=== PATIENT | female | born 1970 | race American Indian/Alaskan Native ===

== ENCOUNTER 2021-09-22 16:47 | Emergency (ER) | payer SELFPAY ==
[2021-09-22] MEDS ORDERED: LORazepam 2 MG/ML VIAL IM PRN (18:24)
[2021-09-22] MEDS ORDERED: charcoal activated SOLUTION 25 GM/120 ML PO ONE (18:46)
[2021-09-22] MEDS ORDERED: ONDANSETRON 4 MG ODT TAB PO ONE (18:46)
--- NOTE | 2021-09-22 18:46 | Emergency Department Report ---
ED General Adult HPI - General Chief complaint: Psych Stated complaint: SUICIDAL PUI?: No Time Seen by Provider: 09/22/21 18:01 Source: patient, EMS ( EMS documentation not available at time of chart dictation ), RN notes reviewed Mode of arrival: Ambulatory Limitations: No Limitations - History of Present Illness Initial comments: The patient is a 51-year-old female. She is not known to myself previously. She arrives with EMS with an EMS stated complaint to triage/charge nurse of suicide attempt. Patient's family member reportedly called 911. The patient states that she is depressed and suicidal. She states that she overdosed on "some pills", and "Visine eyedrops." She tells me that she is not having physical pain. She tells me that she wants to be with a family member. The patient does not know the time of ingestion. The patient states there is no one who can corroborate time of ingestion. She does not know specifically what she took. A pill bag accompanies the patient. Medications include aripiprazole, 5 mg, clonazepam, 0.5 mg, losartan HCTZ [id number], atorvastatin 40 mg, and escitalopram The patient denies physical pain. The patient denies Covid symptoms. The patient states that she is still depressed and suicidal. The patient is not accompanied by friends or family at this time for collateral information or additional information. -: unknown Severity scale (0 -10): 0 - Related Data Previous Rx's Medication Instructions Recorded Last Taken Type Sertraline [Zoloft] 25 mg PO QDAY #30 tab 09/24/21 Unknown Rx hydrOXYzine PAMOATE [Vistaril] 25 mg PO BID PRN #60 capsule 09/24/21 Unknown Rx traZODone [Desyrel] 50 mg PO QHS #30 tab 09/24/21 Unknown Rx Allergies Allergy/AdvReac Type Severity Reaction Status Date / Time Penicillins AdvReac Itching Verified 09/22/21 17:18 ED Review of Systems ROS: Stated complaint: SUICIDAL Other details as noted in HPI Comment: All other systems reviewed and negative Psychiatric: depression, suicidal thoughts ED Past Medical Hx - Past Medical History Hx Hypertension: Yes Additional medical history: depression. sickle cell trait - Social History Smoking Status: Never Smoker Substance Use Type: Alcohol - Medications Home Medications: Home Medications Medication Instructions Recorded Confirmed Last Taken Type Sertraline [Zoloft] 25 mg PO QDAY #30 tab 09/24/21 Unknown Rx hydrOXYzine PAMOATE [Vistaril] 25 mg PO BID PRN #60 capsule 09/24/21 Unknown Rx traZODone [Desyrel] 50 mg PO QHS #30 tab 09/24/21 Unknown Rx ED Physical Exam - General Limitations: No Limitations General appearance: alert, in no apparent distress - Head Head exam: Present: atraumatic, normocephalic - Eye Eye exam: Present: normal appearance, EOMI. Absent: nystagmus - ENT ENT exam: Present: normal exam, normal orophraynx, mucous membranes moist, normal external ear exam - Neck Neck exam: Present: normal inspection, full ROM. Absent: tenderness, meningismus - Respiratory Respiratory exam: Present: normal lung sounds bilaterally. Absent: respiratory distress, wheezes, rales, rhonchi, stridor, decreased breath sounds - Cardiovascular Cardiovascular Exam: Present: regular rate, normal rhythm, normal heart sounds. Absent: bradycardia, tachycardia, irregular rhythm, systolic murmur, diastolic murmur, rubs, gallop - GI/Abdominal GI/Abdominal exam: Present: soft. Absent: distended, tenderness, guarding, rebound, rigid, pulsatile mass - Extremities Exam Extremities exam: Present: normal inspection, full ROM, other (2+ pulses noted in the bilateral upper and lower extremities. There is no palpable cord. negative Homans sign. Muscular compartments are soft. The pelvis is stable.). Absent: pedal edema, calf tenderness - Back Exam Back exam: Present: normal inspection, full ROM. Absent: tenderness, CVA tenderness (R), CVA tenderness (L), paraspinal tenderness, vertebral tenderness - Neurological Exam Neurological exam: Present: alert, oriented X3, other (No facial droop. Tongue midline. Extraocular movements intact bilaterally. Facial sensation intact to light touch in V1, V2, V3 distribution bilaterally. 5 and a 5 strength in 4 extremities. Sensation intact to light touch in 4 extremities.). Absent: motor sensory deficit - Psychiatric Psychiatric exam: Present: flat affect, suicidal ideation - Skin Skin exam: Present: warm, dry, intact, normal color. Absent: rash ED Course Vital Signs 09/22/21 09/22/21 09/22/21 14:07 17:17 17:21 Temperature Pulse Rate Respiratory 18 Rate Blood Pressure 238/182 238/182 Blood Pressure [Right] O2 Sat by Pulse 97 Oximetry 09/22/21 09/22/21 09/22/21 17:31 17:45 18:01 Temperature Pulse Rate Respiratory Rate Blood Pressure 238/182 123/78 118/73 Blood Pressure [Right] O2 Sat by Pulse 97 99 99 Oximetry 09/22/21 09/22/21 09/22/21 18:15 18:31 18:56 Temperature 98.0 F Pulse Rate 61 Respiratory 16 Rate Blood Pressure 109/67 111/70 Blood Pressure 103/70 [Right] O2 Sat by Pulse 97 99 98 Oximetry 09/22/21 09/23/21 09/23/21 20:00 01:01 03:39 Temperature 98.0 F 98.2 F 98.4 F Pulse Rate 79 69 69 Respiratory 16 16 16 Rate Blood Pressure Blood Pressure 106/61 97/59 106/59 [Right] O2 Sat by Pulse 100 99 97 Oximetry 09/23/21 09/23/21 09/23/21 05:53 07:03 07:30 Temperature Pulse Rate 67 88 Respiratory 16 18 15 Rate Blood Pressure Blood Pressure 94/51 88/59 [Right] O2 Sat by Pulse 98 97 99 Oximetry 09/23/21 09/24/21 09/24/21 20:08 03:01 09:05 Temperature 98.4 F 98.6 F 98.6 F Pulse Rate 76 78 93 H Respiratory 18 18 16 Rate Blood Pressure Blood Pressure 112/72 110/70 130/87 [Right] O2 Sat by Pulse 98 98 100 Oximetry - Reevaluation(s) Reevaluation #1: 09/22/21 18:46 Differential diagnosis, including the not limited to: Overdose, suicidality, medical clearance for psychiatric placement, depression with psychotic features Assessment and plan: 51-year-old female, who is awake, alert, oriented, with a GCS of 15, nonfocal motor exam, with complaint of suicidality, depression and overdose. We do not know specifically what the patient took, as the patient rothman s not know specifically what she took. The patient does not know an exact time of ingestion. The patient is awake and protecting airway and moving [address] patient on gis database administrator. Initiate 1013. Obtain appropriate laboratory studies and EKG. Discussed with Poison Control Center after initial diagnostics have resulted. Given multiple medications that the patient is currently prescribed, possibility of polysubstance/polypharmacy ingestion, unknown exact ingestion, unknown ingestion time, lack of ability to corroborate ingestion, I anticipate this patient will likely require prolonged observation for observation, given that she takes aripiprazole, and escitalopram and we do not know if she took these medications or not 09/22/21 18:46 09/22/21 20:15 Laboratory studies are reviewed and appreciated. Contacted the [facility], and discussed the case with their advisor, Domingo Discussed the patient's history, physical, current laboratory studies and EKG findings. Recommends observation in the emergency room for 8 to 12 hours. Recommends 3 EKGs and supportive care. Recommend set of QRS duration greater than or equal to 110 ms, give 2 A of sod ium bicarbonate, and repeat EKG. If the repeat EKG after administration of sodium bicarbonate shows a narrow QRS, he recommends bicarb drip at our discretion. If there is no change, he recommends that this is likely the patient's baseline QRS. He also recommends optimization of potassium. We have ordered this. Repeat acetaminophen level is pending. Patient will therefore be observed in the emergency room for approximately 8 to 12 hours, with the aforementioned recommendations. 09/22/21 20:43 Care will be transferred to the oncoming ER physician, to follow-up on EKG #2 and 3, Tylenol level, UA, UDS, and to complete observation pending 5:15 in the morning. Should the patient not decompensated by that time, we would consider this patient medically suitable for psychiatric disposition and placement. ED Medical Decision Making - Lab Data Result diagrams: 09/22/21 18:29 09/22/21 18:29 Vital Signs 09/22/21 09/22/21 09/22/21 14:07 17:17 17:21 Respiratory 18 Rate Blood Pressure 238/182 238/182 O2 Sat by Pulse 97 Oximetry 09/22/21 09/22/21 09/22/21 17:31 17:45 18:01 Respiratory Rate Blood Pressure 238/182 123/78 118/73 O2 Sat by Pulse 97 99 99 Oximetry 09/22/21 09/22/21 18:15 18:31 Respiratory Rate Blood Pressure 109/67 111/70 O2 Sat by Pulse 97 99 Oximetry Lab Results 09/22/21 09/22/21 09/22/21 Range/Units 18:29 18:29 18:29 WBC 7.1 (4.5-11.0) K/mm3 RBC 4.94 (3.65-5.03) M/mm3 Hgb 13.8 (10.1-14.3) gm/dl Hct 42.1 (30.3-42.9) % MCV 85 (79-97) fl MCH 28 (28-32) pg MCHC 33 (30-34) % RDW 14.0 (13.2-15.2) % Plt Count 266 (140-440) K/mm3 Lymph % (Auto) 31.9 (13.4-35.0) % [place] % (Auto) 7.5 H (0.0-7.3) % Eos % (Auto) 0.7 (0.0-4.3) % Baso % (Auto) 0.6 (0.0-1.8) % Lymph # (Auto) 2.3 (1.2-5.4) K/mm3 [place] # (Auto) 0.5 (0.0-0.8) K/mm3 Eos # (Auto) 0.1 (0.0-0.4) K/mm3 Baso # (Auto) 0.0 (0.0-0.1) K/mm3 Seg Neutrophils % 59.3 (40.0-70.0) % Seg Neutrophils # 4.2 (1.8-7.7) K/mm3 PT (12.2-14.9) Sec. INR (0.87-1.13) APTT (24.2-36.6) Sec. Sodium 139 (137-145) mmol/L Potassium 3.4 L (3.6-5.0) mmol/L Chloride 99.9 (98-107) mmol/L Carbon Dioxide 24 (22-30) mmol/L Anion Gap 19 mmol/L BUN 8 (7-17) mg/dL Creatinine 0.8 (0.6-1.2) mg/dL Estimated GFR > 60 ml/min BUN/Creatinine Ratio 10 % Glucose 127 H (65-100) mg/dL Calcium 9.4 (8.4-10.2) mg/dL Magnesium (1.7-2.3) mg/dL Total Bilirubin 0.30 (0.1-1.2) mg/dL AST 14 (5-40) units/L ALT 13 (7-56) units/L Alkaline Phosphatase 73 (35-129) units/L Total Creatine Kinase (30-135) units/L Total Protein 7.6 (6.3-8.2) g/dL Albumin 4.2 (3.9-5) g/dL Albumin/Globulin Ratio 1.2 % TSH 2.070 (0.270-4.200) mlU/mL HCG, Qual (Negative) Salicylates (2.8-20.0) mg/dL Acetaminophen (10.0-30.0) ug/mL Plasma/Serum Alcohol (0-0.07) % 09/22/21 09/22/21 09/22/21 Range/Units 18:29 18:29 18:29 WBC (4.5-11.0) K/mm3 RBC (3.65-5.03) M/mm3 Hgb (10.1-14.3) gm/dl Hct (30.3-42.9) % MCV (79-97) fl MCH (28-32) pg MCHC (30-34) % RDW (13.2-15.2) % Plt Count (140-440) K/mm3 Lymph % (Auto) (13.4-35.0) % Mel[place] % (Auto) (0.0-7.3) % Eos % (Auto) (0.0-4.3) % Baso % (Auto) (0.0-1.8) % Lymph # (Auto) (1.2-5.4) K/mm3 Mellette # (Auto) (0.0-0.8) K/mm3 Eos # (Auto) (0.0-0.4) K/mm3 Baso # (Auto) (0.0-0.1) K/mm3 Seg Neutrophils % (40.0-70.0) % Seg Neutrophils # (1.8-7.7) K/mm3 PT (12.2-14.9) Sec. INR (0.87-1.13) APTT (24.2-36.6) Sec. Sodium (137-145) mmol/L Potassium (3.6-5.0) mmol/L Chloride (98-107) mmol/L Carbon Dioxide (22-30) mmol/L Anion Gap mmol/L BUN (7-17) mg/dL Creatinine (0.6-1.2) mg/dL Estimated GFR ml/min BUN/Creatinine Ratio % Glucose (65-100) mg/dL Calcium (8.4-10.2) mg/dL Magnesium (1.7-2.3) mg/dL Total Bilirubin (0.1-1.2) mg/dL AST (5-40) units/L ALT (7-56) units/L Alkaline Phosphatase (35-129) units/L Total Creatine Kinase (30-135) units/L Total Protein (6.3-8.2) g/dL Albumin (3.9-5) g/dL Albumin/Globulin Ratio % TSH (0.270-4.200) mlU/mL HCG, Qual (Negative) Salicylates < 0.3 L (2.8-20.0) mg/dL Acetaminophen 5.0 L (10.0-30.0) ug/mL Plasma/Serum Alcohol < 0.01 (0-0.07) % 09/22/21 09/22/21 09/22/21 Range/Units 18:29 18:29 18:29 WBC (4.5-11.0) K/mm3 RBC (3.65-5.03) M/mm3 Hgb (10.1-14.3) gm/dl Hct (30.3-42.9) % MCV (79-97) fl MCH (28-32) pg MCHC (30-34) % RDW (13.2-15.2) % Plt Count (140-440) K/mm3 Lymph % (Auto) (13.4-35.0) % [place] % (Auto) (0.0-7.3) % Eos % (Auto) (0.0-4.3) % Baso % (Auto) (0.0-1.8) % Lymph # (Auto) (1.2-5.4) K/mm3 [place] # (Auto) (0.0-0.8) K/mm3 Eos # (Auto) (0.0-0.4) K/mm3 Baso # (Auto) (0.0-0.1) K/mm3 Seg Neutrophils % (40.0-70.0) % Seg Neutrophils # (1.8-7.7) K/mm3 PT 14.5 (12.2-14.9) Sec. INR 1.02 (0.87-1.13) APTT 30.9 (24.2-36.6) Sec. Sodium (137-145) mmol/L Potassium (3.6-5.0) mmol/L Chloride (98-107) mmol/L Carbon Dioxide (22-30) mmol/L Anion Gap mmol/L BUN (7-17) mg/dL Creatinine (0.6-1.2) mg/dL Estimated GFR ml/min BUN/Creatinine Ratio % Glucose (65-100) mg/dL Calcium (8.4-10.2) mg/dL Magnesium 1.90 (1.7-2.3) mg/dL Total Bilirubin (0.1-1.2) mg/dL AST (5-40) units/L ALT (7-56) units/L Alkaline Phosphatase (35-129) units/L Total Creatine Kinase 87 (30-135) units/L Total Protein (6.3-8.2) g/dL Albumin (3.9-5) g/dL Albumin/Globulin Ratio % TSH (0.270-4.200) mlU/mL HCG, Qual Negative (Negative) Salicylates (2.8-20.0) mg/dL Acetaminophen (10.0-30.0) ug/mL Plasma/Serum Alcohol (0-0.07) % Vital Signs 09/22/21 09/22/21 09/22/21 14:07 17:17 17:21 Temperature Pulse Rate Respiratory 18 Rate Blood Pressure 238/182 238/182 Blood Pressure [Right] O2 Sat by Pulse 97 Oximetry 09/22/21 09/22/21 09/22/21 17:31 17:45 18:01 Temperature Pulse Rate Respiratory Rate Blood Pressure 238/182 123/78 118/73 Blood Pressure [Right] O2 Sat by Pulse 97 99 99 Oximetry 09/22/21 09/22/21 09/22/21 18:15 18:31 18:56 Temperature 98.0 F Pulse Rate 61 Respiratory 16 Rate Blood Pressure 109/67 111/70 Blood Pressure 103/70 [Right] O2 Sat by Pulse 97 99 98 Oximetry - EKG Data -: EKG Interpreted by Ms EKG shows normal: sinus rhythm Rate: normal - EKG Data When compared to previous EKG there are: previous EKG unavailable 09/22/21 18:48 EKG is interpreted at 18: 44 Sinus rhythm, 64 bpm. Leftward axis deviation. Normal P wave axis. Low voltage. Poor R wave progression. VT interval 174 ms. QRS 103 ms. QT 425 ms. QTc 439 ms. There is motion artifact. This is not a STEMI. Q waves noted in the inferior leads. Critical care attestation.: If time is entered above; I have spent that time in minutes in the direct care of this critically ill patient, excluding procedure time. ED Disposition Clinical Impression: Attempted suicide, Overdose, Depression, Medical clearance for psychiatric admission Disposition: HOME / SELF CARE / HOMELESS Is pt being admited?: Yes Does the pt Need Aspirin: No Condition: Good Additional Instructions: Professional and Agency Contacts To help Resolve Crises (10/06) OR Crisis Line: Suicide Prevention Line: Crisis Text Line: Text START to [phone] Emergency: 911 Outpatient COMMUNITY Behavioral Health Resources: EMMA: [facility] [address] [place], [place] [address] [facility] [address] [place] [address] Saturday thru Saturday - 8am - 5pm Call to schedule an assessment for mental health and substance abuse programs [facility] Address: [address] [place] [address] Saturday thru Saturday- 7am-2pm [facility] Address: [address] [place] [address] Saturday thrsaturday: 8:30AM-5PM Prescriptions: traZODone [Desyrel] 50 mg PO QHS #30 tab hydrOXYzine PAMOATE [Vistaril] 25 mg PO BID PRN #60 capsule PRN Reason: Anxiety Sertraline [Zoloft] 25 mg PO QDAY #30 tab Referrals: PRIMARY CARE, [Primary Care Provider] - 3-5 Days
[2021-09-22 18:48] LABS: Basophils % (Auto) 0.6 % (0.0-1.8); Eosinophils # (Auto) 0.1 K/mm3 (0.0-0.4); Eosinophils % (Auto) 0.7 % (0.0-4.3); Hematocrit 42.1 % (30.3-42.9); Hemoglobin 13.8 gm/dl (10.1-14.3); Lymphocytes # (Auto) 2.3 K/mm3 (1.2-5.4); Lymphocytes % (Auto) 31.9 % (13.4-35.0); Mean Corpuscular HGB Conc 33 % (30-34); Mean Corpuscular Volume 85 fl (79-97); Monocytes # (Auto) 0.5 K/mm3 (0.0-0.8); Monocytes % (Auto) 7.5 % (0.0-7.3); Platelet Count 266 K/mm3 (140-440); Red Blood Count 4.94 M/mm3 (3.65-5.03)
[2021-09-22 18:57] LABS: INR 1.02 (0.87-1.13)
[2021-09-22 18:58] LABS: Partial Thromboplastin Time 30.9 Sec. (24.2-36.6)
[2021-09-22 19:11] LABS: Alanine Aminotransferase 13 units/L (7-56); Albumin 4.2 g/dL (3.9-5); BUN/Creatinine Ratio 10; Blood Urea Nitrogen 8 mg/dL (7-17); Calcium 9.4 mg/dL (8.4-10.2); Hemolysis Index 5
[2021-09-22] MEDS ORDERED: POTASSIUM CHLORIDE ER 20 MEQ TAB PO ONE ×2 (20:12→23:47)
[2021-09-22 21:25] LABS: Bacteria,Urine 1+ /HPF (Negative); Bilirubin,Urine NEG (Negative); Blood,Urine SM (Negative); Color,Urine Yellow (Yellow); Protein,Urine <15 mg/dL mg/dL (Negative); Urobilinogen,Urine < 2.0 mg/dL (<2.0)
[2021-09-22 21:31] LABS: Amphetamine Screen,Urine Negative; Benzodiazepines Screen,Urine Negative; Cocaine Screen,Urine Negative; Methadone Screen,Urine Negative; Opiate Screen,Urine Negative
[2021-09-22 21:50] LABS: Cannabinoid Screen,Urine Positive
--- NOTE | 2021-09-23 01:39 | Emergency Department Report ---
Blank Doc - Documentation Documentation: I had accepted signout from Dr. Teri Lee. EKG was noted. Patient has a QRS that is 103. We will continue to observe. If she develops a widened QRS or bundle branch block, we will treat empirically. Otherwise, labs been reviewed.
[2021-09-23] MEDS ORDERED: SODIUM CHLORIDE 0.9% 1000 ML 1,000 ML IV ONE (06:26)
--- NOTE | 2021-09-23 11:40 | Consultation ---
History of Present Illness - Reason for Consult Consult date: 09/23/21 Reason for consult: Suicidal attempts - History of Present Psychiatric Illness The patient was seen today, she is a 51y/o female patient who was brought in for suicidal attempt by ingesting eye drops. She initially appears irritable but as the interview goes on she becomes pleasant and polite. The patient does say that it was a mistake and she no longer feels this way. At the same time, she is cr don, expressing hopelessness and being upset with God. She says "God needs to hurry up and help me. He's taking too long." The patient says she took eye drops because she knows they can kill you. She says "I'm confused with the world I'm living in, I don't know what to do. My daughters are in cahoot with each other." She says "I believe in God but I need help." She denies hallucinations of any ki nd. She grabs my hand and thanks me at the end of the evaluation. PAST PSYCHIATRIC HISTORY: Diagnoses: Denies Suicide attempts or Self-harm behavior: Denies Prior psychiatric hospitalizations: Denies Substance Abuse history: Denies Previous psychiatric medications tried: Denies Outpatient treatment: Denies PAST MEDICAL HISTORY: None reported or document Family Psychiatric History: None reported or documented SOCIAL HISTORY Marital Status: Living Arrangements: alone Employment Status: Employed Access to guns/weapons: Denies Education: History of Abuse: Denies Legal History: Unknown REVIEW OF SYSTEMS Constitutional: Negative for weight loss ENT: Negative for stridor Respiratory: Negative for cough or hemoptysis All other systems reviewed and are negative MENTAL STATUS EXAMINATION General Appearance and Behavior: Age appropriate, good hygiene, wearing appropriate clothes. Cooperation: cooperative Psychomotor Behavior: Psychomotor normal Mood: Depressed Affect and affective range: congruent with stated mood, tearful Thought Process: goal directed Thought Content: SI, hopelessness Speech: Normal volume, Regular rate and rhythm, Suicidal Ideation: Yes Homicidal Ideation: Denies Hallucinations: Denies Delusions: None elicited Impulse Control: Poor Insight and Judgment: Limited Memory: limited Attention: Attentive Orientation: alert and oriented Assessment and Plan (1) Major Depressive Disorder Treatment Plan 1013 Start Zoloft 25mg po daily Start Trazodone 50mg po qhs Start Vistaril 25mg po BID Sitter: per primary Medical: Per primary Disposition: recommend acute psychiatric inpatient treatment will follow thanks. Case staffed with Dr. Lira Medications and Allergies Allergies Allergy/AdvReac Type Severity Reaction Status Date / Time Penicillins AdvReac Itching Verified 09/22/21 17:18 Active Meds: Active Medications Lorazepam (Lorazepam 2 Mg/Ml Vial) 2 mg IM Q4HR PRN PRN Reason: Agitation Last Admin: 09/22/21 23:57 Dose: 2 mg Documented by: Mental Status Exam - Vital signs Last Vital Signs Temp 98.4 F 09/23/21 03:39 Pulse 88 09/23/21 07:03 Resp 15 09/23/21 07:30 BP 88/59 09/23/21 07:03 Pulse Ox 99 09/23/21 07:30 Results Result Diagrams: 09/22/21 18:29 09/22/21 18:29 Abnormal lab results 09/22/21 09/22/21 09/22/21 Range/Units 18:29 18:29 18:29 Boyle % (Auto) 7.5 H (0.0-7.3) % Potassium 3.4 L (3.6-5.0) mmol/L Glucose 127 H (65-100) mg/dL Salicylates < 0.3 L (2.8-20.0) mg/dL Acetaminophen (10.0-30.0) ug/mL 09/22/21 09/22/21 Range/Units 18:29 21:04 Boyle % (Auto) (0.0-7.3) % Potassium (3.6-5.0) mmol/L Glucose (65-100) mg/dL Salicylates (2.8-20.0) mg/dL Acetaminophen 5.0 L 5.0 L (10.0-30.0) ug/mL All other labs normal.
[2021-09-23] MEDS ORDERED: SERTRALINE 25 MG TAB PO SCH (12:00)
[2021-09-23] MEDS: hydrOXYzine PAMOATE 25 MG CAP PO SCH ×2 (12:34→22:02)
--- NOTE | 2021-09-23 14:01 | Event Note ---
I have reviewed labs. Patient has had stable vital signs throughout her ED course. She is ambulatory without difficulty. She has been emergency department for 21 hours without cardiovascular collapse or clinical deterioration.. She is medically clear for psychiatric care.
[2021-09-23] MEDS ORDERED: traZODone 50 MG TAB PO SCH (22:00)
--- NOTE | 2021-09-24 09:28 | Progress Note ---
Subjective - Reason for Consult Consult date: 09/24/21 Reason for consult: SI - Chief Complaint Chief complaint: The patient was seen today. She is calm, cooperative and pleasant. She appears to be in a better mood today than yesterday. She says "thank you so much. I feel good today." The patient says "I have to go to work today at 3 pm." She says "I work at [employer]." The patient says what she did was selfish and states she would never do that again. She says "I'm not suicidal and will never let myself get to that point again." She says "I promise I won't do that again." She denies hallucinations of any kind. REVIEW OF SYSTEMS Constitutional: Negative for weight loss ENT: Negative for stridor Respiratory: Negative for cough or hemoptysis All other systems reviewed and are negative MENTAL STATUS EXAMINATION General Appearance and Behavior: Age appropriate, good hygiene, wearing appropriate clothes. calm, cooperative, and pleasant Cooperation: cooperative Psychomotor Behavior: Psychomotor normal Mood: good Affect and affective range: congruent with stated mood, euthymic Thought Process: goal directed Thought Content: optimistic Speech: Normal volume, Regular rate and rhythm, Suicidal Ideation: Denies Homicidal Ideation: Denies Hallucinations: Denies Delusions: None elicited Impulse Control: Limited Insight and Judgment: Limited Memory: limited Attention: Attentive Orientation: alert and oriented Assessment and Plan (1) Major Depressive Disorder Treatment Plan d/c 1013 Zoloft 25mg po daily Trazodone 50mg po qhs Vistaril 25mg po BID Sitter: per primary Medical: Per primary Disposition: Do not recommend acute psychiatric inpatient treatment. The patient understands that if SI/HI or any fear of endangerment she is to seek immediate assistance. The learning center coordinator is to give the patient all necessary resources for outpatient care The learning center coordinator is to further discuss safety plan and document Will sign off. Thanks Case staffed with Dr. Lira Mental Status Exam - Vital signs Last Vital Signs Temp 98.6 F 09/24/21 03:01 Pulse 78 09/24/21 03:01 Resp 18 09/24/21 03:01 BP 110/70 09/24/21 03:01 Pulse Ox 98 09/24/21 03:01
[2021-09-24 10:11] VITALS: BP 130/87
--- NOTE | 2021-09-24 10:48 | Event Note ---
Patient has been cleared for discharge by mental health team. I have provided discharge order and documentation.
--- NOTE | 2021-09-24 11:41 | Electrocardiograph Report ---
[facility] Test Date: 2021-09-22 Test Time: 18:44:52 Pat Name: STEPHANY SCRUGGS Department: Room: Gender: F Community Relations Liaison: LAURA : 1970 Requested By: SUHAIL PELLETIER Order Number: [id number] Reading MD: Tacos Starks Measurements Intervals [place] Rate: 64 P: 55 [place]: 174 QRS: 1 QRSD: 103 T: -10 QT: 425 QTc: 439 Interpretive Statements Sinus rhythm Inferior infarct, old No previous ECG available for comparison Electronically Signed On 09-24-2021 11:40:57 EST by Tacos Starks
--- NOTE | 2021-09-24 11:44 | Electrocardiograph Report ---
[facility] Test Date: 2021-09-23 Test Time: 00:45:53 Pat Name: STEPHANY SCRUGGS Department: Room: Gender: F Geospatial Imagery Intelligence Analyst: NURSE : 1970 Requested By: SUHAIL PELLETIER Order Number: [id number] Reading MD: Tacos Starks Measurements Intervals [place] Rate: 66 P: 66 [place]: 167 QRS: 22 QRSD: 106 T: -22 QT: 434 QTc: 454 Interpretive Statements Sinus rhythm Compared to ECG 09/22/2021 18:44:52 no significant change Electronically Signed On 09-24-2021 11:43:50 EST by Tacos Starks
--- NOTE | 2021-09-26 11:29 | Electrocardiograph Report ---
[facility] Test Date: 2021-09-23 Test Time: 00:47:13 Pat Name: STEPHANY SCRUGGS Department: Room: Gender: F Bread Stacker: NURSE : 1970 Requested By: SUHAIL PELLETIER Order Number: [id number] Reading MD: Epi Hannah Measurements Intervals [place] Rate: 62 P: 67 [place]: 164 QRS: 17 QRSD: 103 T: -19 QT: 439 QTc: 448 Interpretive Statements Sinus rhythm Low voltage, precordial leads Compared to ECG 09/23/2021 00:45:53 Low QRS voltage now present Electronically Signed On 09-26-2021 11:29:37 EST by Epi Hannah
== END 2021-09-24 10:30 | disposition home or self-care (01) ==
LOC: ED 16:47
DX: T50.992A Poisoning by other drugs, medicaments and biological substances, intentional self-harm, initial encounter (principal); Z20.822 Contact with and (suspected) exposure to COVID-19; I10 Essential (primary) hypertension; F32.9 Major depressive disorder, single episode, unspecified; R79.1 Abnormal coagulation profile; Z88.0 Allergy status to penicillin; Z79.899 Other long term (current) drug therapy; Y92.89 Other specified places as the place of occurrence of the external cause
CPT/HCPCS: 36415; 80053; 80307; 81001; 82550; 83735; 84443; 84703; 85025; 85610; 85730; 93005; 96360; 96372; 99285; J2060; Q0177; U0003; 80320; G0480; Q0162

== ENCOUNTER 2022-03-30 13:18 | Emergency (ER) | payer SELFPAY ==
--- NOTE | 2022-03-30 15:40 | Emergency Department Report ---
ED Psych HPI - General Chief Complaint: Psych Stated Complaint: MH EVAL Time Seen by Provider: 03/30/22 15:20 Source: EMS Mode of arrival: Stretcher Limitations: No Limitations - History of Present Illness Initial Comments: 51-year-old female who reports history of depression. She has been noncompliant with her psychiatric meds x1 month. Her neurologist refers to her psychiatry however, patient missed appointment. Patient denies suicidal ideation, homicidal ideation, or hallucinations. She also denies physical complaints. - Related Data Previous Rx's Medication Instructions Recorded Last Taken Type Sertraline [Zoloft] 25 mg PO QDAY #30 tab 09/24/21 Unknown Rx hydrOXYzine PAMOATE [Vistaril] 25 mg PO BID PRN #60 capsule 09/24/21 Unknown Rx traZODone [Desyrel] 50 mg PO QHS #30 tab 09/24/21 Unknown Rx Allergies Allergy/AdvReac Type Severity Reaction Status Date / Time Penicillins AdvReac Itching Verified 09/22/21 17:18 ED Review of Systems ROS: Stated complaint: MH EVAL Other details as noted in HPI Comment: All other systems reviewed and negative ED Past Medical Hx - Past Medical History Previous Medical History?: Yes Hx Hypertension: Yes Additional medical history: depression. sickle cell trait - Social History Smoking Status: Current Every Day Smoker Substance Use Type: None - Medications Home Medications: Home Medications Medication Instructions Recorded Confirmed Last Taken Type Sertraline [Zoloft] 25 mg PO QDAY #30 tab 09/24/21 Unknown Rx hydrOXYzine PAMOATE [Vistaril] 25 mg PO BID PRN #60 capsule 09/24/21 Unknown Rx traZODone [Desyrel] 50 mg PO QHS #30 tab 09/24/21 Unknown Rx ED Physical Exam - General Limitations: No Limitations - Other Other exam information: General: No acute distress Head: Atraumatic Eyes: normal appearance ENT: Moist mucous membranes Neck: Normal appearance, no midline tenderness Chest: Clear to auscultation bilaterally CV: Regular rate and rhythm Abdomen: Soft, normal bowel sounds, nontender, nondistended, no rebound or guarding Back: Normal inspection Extremity: Normal inspection, full range of motion Neuro: Alert O x 3, no facial asymmetry, speech clear, no gross motor sensory deficit Psych: Appropriate behavior Skin: No rash ED Course Vital Signs 03/30/22 03/30/22 13:28 14:53 Temperature 97 F L Pulse Rate 92 H Respiratory 18 16 Rate Blood Pressure 169/90 [Left] O2 Sat by Pulse 99 99 Oximetry ED Medical Decision Making - Medical Decision Making 51-year-old female with chronic depression without thoughts of suicide, homicide, psychosis requesting a med refill. Patient does not meet criteria for 1013. Patient states she can follow-up with psychiatry on Saturday. She was encouraged to follow-up with her outpatient psychiatrist for continued management of her chronic depression and medication refill Critical Care Time: No Critical care attestation.: If time is entered above; I have spent that time in minutes in the direct care of this critically ill patient, excluding procedure time. ED Disposition Clinical Impression: Chronic depression, Noncompliance with medication regimen Disposition: 01 HOME / SELF CARE / HOMELESS Is pt being admited?: No Does the pt Need Aspirin: No Condition: Stable Instructions: Persistent Depressive Disorder, Adult Additional Instructions: Follow-up with your psychiatrist for medication refill as discussed. Please return to the ER if you hear voices, have severe depression, have thoughts of suicide, or thoughts of harming anyone else. Referrals: PRIMARY CARE, [Primary Care Provider] - 3-5 Days [facility] [Outside] - 3-5 Days Time of Disposition: 16:08
[2022-03-30 16:30] VITALS: BP 137/83
== END 2022-03-30 16:37 | disposition home or self-care (01) ==
LOC: ED 13:18
DX: F32.A Depression, unspecified (principal); Z91.14 Patient's other noncompliance with medication regimen; Z88.0 Allergy status to penicillin; I10 Essential (primary) hypertension; F17.200 Nicotine dependence, unspecified, uncomplicated
CPT/HCPCS: 99283